=== PATIENT | male | born 1955 | race Caucasian/White ===

== ENCOUNTER 2024-04-09 08:38 | Inpatient (IN) | payer MEDICARE, OTHER, SELFPAY ==
[2024-04-04 13:48] VITALS: BMI 24.3
[2024-04-09] VITALS (14 sets, daily range): BP systolic 115–174; BP diastolic 67–94; PULSE 51–74; RESP 12–21; TEMP 36.6–37.1; O2SAT 94–99; BMI 24.3
--- NOTE | 2024-04-09 | DI.RAD.S_ITS ---
PROCEDURE: XR KNEE RT 1TO2V INDICATIONS: post op TECHNIQUE: 2 view(s) of the knee acquired. COMPARISON: None. FINDINGS: Bones: Patient is status post knee joint arthroplasty. Hardware components are in expected positions. Visualized bony structures are intact. Soft tissues: Overlying postoperative changes are noted. IMPRESSION: Expected post-operative appearance of a knee arthroplasty. Approved by: Ramon Guerrero M.D. on 04/09/2024 at 17:04
[2024-04-09] MEDS: VANCOMYCIN 1,000 MG/200 ML PIGGYBACK 200 MG IV (09:37)
[2024-04-09] MEDS: ACETAMINOPHEN 325 MG TABLET 975 MG PO (09:40)
[2024-04-09] MEDS: LACTATED RINGERS 1,000 ML 42 ML IV ×2 (09:40→12:08)
--- NOTE | 2024-04-09 10:06 | PM.PREOP ---
Pre-operative Note Interval Note History & Physical reviewed/Exam performed by Physician: Yes Changes to H&P: No
--- NOTE | 2024-04-09 10:06 | PM.OP.1 ---
Operative Date/Time/Diagnoses Date of procedure: 04/09/24 Time of procedure: 11:00 Pre-op diagnosis: History of right knee medial compartment arthroplasty with slight loosening and progressive severe patellofemoral and lateral compartment OA, Post-op diagnosis: same Procedure & Clinicians Procedure: Revision right total knee arthroplasty Same procedure as scheduled: Yes Indications: The patient has had progressively worsening right knee pain with a history of a right knee medial unicompartment arthroplasty. He has slight tibial loosening and severe Radiographic changes consistent with arthritis in the patellofemoral and lateral compartment. Non-operative management has failed and the patient has requested revision right total knee replacement. The risks, benefits and alternatives to surgery were discussed with the patient prior to proceeding. Risks discussed included, but were not limited to, failure to relieve pain, stiffness, infection, nerve damage, deep venous thrombosis, pulmonary embolism, stroke, coma, heart attack, permanent paralysis and , as well as the potential need for eventual revision of the prosthetic. Surgeon: Tanesha Jackson Sugar Cane Planter Machine Operator: Neri Li Anesthesia Type: General, Spinal and Peripheral nerve block Operative Notes Findings: Severe patellofemoral and lateral compartment OA with mild loosening of the medial unicompartment arthroplasty some evidence of poly wear, minimal posterior tibial loosening Closure Type: primary Specimen(s): other (Cultures femoral synovial and tibial and PCR) Prosthetic devices, grafts, tissues, transplants, or devices: Jackson and nephew journey BCS2 size 8 femur, size 7 tibia, 100 x 10 mm femoral stem, size 9 poly, 35 mm oval patella Estimated Blood Loss (mL): 250 Blood products transfused: none Tourniquet time (min): 107 Procedure in detail: The patient was seen in the pre-operative area, where the patient identified the right knee as the operative site and this was marked with my initials. The patient received pre-operative antibiotics, and was taken to the operating room and placed on the operative table in the supine position. After satisfactory anesthesia, a multimedia technician out was performed. The right leg was encircled with a tourniquet about the proximal thigh, and the leg was prepared from the toes to the tourniquet with ChloroPrep in the usual fashion and draped through sterile drapes. The leg was elevated and exsanguinated with Eschmark bandage and the tourniquet inflated to [250] mmHg pressure. A PA was used during the procedure and was essential for intraoperative retraction and safe implantation of the components. The knee was approached through an approximately 18 cm incision centered over the patella on the right knee using a combination of the patient's previous incision and extending it proximally and distally. It was carried into the knee through a medial parapatellar arthrotomy. A Portion of the medial scar around the medial unicompartment component and lateral meniscus was resected. Soft tissue was carefully mobilized around the patella the patella was measured with a caliper. Bone was resected from the patella and the patellar height was reconstituted with up an appropriate sized patellar component. A cover was then placed on the patella. A small amount of additional medial and lateral meniscus was resected. The unicompartment knee was partially loosened using a combination of osteotomes and a TPS saw. The tourniquet was elevated initially for 29 minutes and then we let it down. Pins were placed in the femur for Cori robotic navigation and in the tibia. The knee was meticulously mapped and a plan was taken and developed. Patient was placed through a range of motion we attempted to correct his angular deformity and leave him with a balanced knee. The components were then meticulously removed in order to minimize bone loss. Deep cultures were taken from the undersurface of the femoral component the tibia and synovium and were sent to pathology for PCR and cultures. The bur was used to resect the bone off of the lateral femur and bur holes were used for placement of the 5 in 1 block. It looked like an appropriate distal femoral cut and the cut was made without difficulty. I checked the medial femur there was minimal bone loss and it did not look like we needed an augment when checking with the Cori robotic assisted navigation. The rotation was assessed and the appropriate size femoral guide was placed on the distal femur and finishing cuts were made. There was no evidence of notching. The anterior, posterior and chamfer cuts were then made. The posterior osteophytes and soft tissues were then removed. The posterior capsule was injected with part of a mixture of 60 ml 0.25% Marcaine mixed with 266 mg Exparel for post operative pain control. The remainder of this mixture was injected into the capsule and subcutaneous tissues during cement curing. A clean-up cut was made on the tibia in order to resect portion of the lateral tibial plateau. I then used the Cori robotic bur all mode to remove any residual tibia. There was minimal bone loss in the medial tibia and it did not look like we needed an augment. The rotation was assessed. The patient was placed in extension residual medial and lateral meniscus as well as any residual bone was carefully resected. [No] additional tibia was resected. Hemostasis was achieved especially posteriorly. Additional local was injected into the posterior capsule. The extension gap was assessed. The femoral component was trial was placed and the notch was finished. Trial tibial and femoral components were then placed and the knee placed through a range of motion. Range of motion was [0-130], with good stability throughout the range. The tourniquet was reinflated for 78 minutes. The trials were then removed, and the tibia was finished. The tibia was carefully inspected. The cut appeared symmetrical without evidence of a substantial defect. I specifically rough in the medial aspect of the tibia scratching some fibrinous appearing area in the posterior aspect of the medial tibia I also removed a retained ACL screw. The punch was used also attempt freshened the bone medially in order to improve fixation. After the tibia had been drilled and then punched I also dropped down a Reamer to size 11 for a short stem. The bone was prepared with pulsatile lavage, and dried with a sponge. Cement was applied and the final prosthetics placed. Excess cement was removed during and after cement curing. A brief Betadine soak was performed. After confirming there was no extruded cement posteriorly, the final tibial insert was placed. The knee was copiously irrigated and the tourniquet deflated. Hemostasis was obtained with the [Aquamantys system]. The capsule was closed with interrupted # 1 Vicryl suture. The subcutaneous layer was closed with barbed sutures, and the skin with a running 3-0 V-Lock suture and skin marta. A marcial dressing was applied and the patient was taken to recovery having tolerated the procedure well. Complications: none Post-operative Condition: stable Disposition: Acute Care Plan for aftercare: The patient will be maintained on a standard total knee replacement protocol with weight bearing as tolerated. The patient will receive aspirin and sequential compression devices for DVT prophylaxis. The patient will be discharged home when safe for the home environment.
--- NOTE | 2024-04-09 11:00 | SUR.PREOP ---
Block start time 1042 with a time out. Monitoring initiated and maintained throughout procedure. Oxygen and medications given by anesthesia provider or by her instructions. Patient remained stable throughout procedure, no adverse reactions noted. Block end time 1053.
[2024-04-09] MEDS: CEFAZOLIN 2 GM/100 ML PREMIX 100 ML IV ×2 (11:12→18:20)
[2024-04-09] MEDS: TRANEXAMIC ACID 1,000 MG VIAL 2000 MG INJ ×2 (11:14→13:51)
--- NOTE | 2024-04-09 11:35 | SUR.OPER ---
Supine on padded OR bed. Pillow under head, arms secured on padded armboards <90 degree abduction. Safety belt across torso. Non-operative leg secured with tape over blanket over lower leg. Operative leg secured in DeMayo/Beny/Nathe positioner. Foam padded brace at thigh of operative leg.
[2024-04-09] MEDS: BUPIVACAINE 0.25% (PF) 30 ML, EPINEPHrine 0.15 MG INJ (11:42)
[2024-04-09] MEDS: BUPIVACAINE LIPOSOME 266 MG/20 ML VIAL INJ (11:43)
[2024-04-09] MEDS: MEPERIDINE 50 MG/ML INJ 12.5 MG IV (14:30)
[2024-04-09] MEDS: OXYCODONE IR 5 MG TABLET PO ×3 (14:49→18:20)
[2024-04-09] MEDS: hydrOXYzine 50 MG/ML INJ 25 MG IM (14:51)
--- NOTE | 2024-04-09 16:35 | PT.IIE ---
Current Diagnoses Unilateral primary osteoarthritis, right knee (04/09/24) Mechanical loosening of internal right knee prosthetic joint, initial encounter (04/09/24) Presence of right artificial knee joint (04/09/24) Surgery Performed Operation Date: 04/09/24 10:45 Actual Procedures p Total Knee Arthroplasty Revision - Robot uni to total(Right) - Tanesha Jackson MD Surgical History (Last Updated 04/04/24 @ 14:47 by Daisy Cody, RN) Anesthesia History of coronary angioplasty with insertion of stent (01/2020) History of partial knee replacement (~2011) History of radical prostatectomy (10/2005) Medical History (Last Updated 04/04/24 @ 14:47 by Daisy Cody, RN) Bladder stones Coronary artery disease Dupuytren's contracture of left hand Erectile dysfunction Generalized anxiety disorder History of deviated nasal septum History of elevated PSA (~2004) History of prostate cancer (~2004) Hyperkalemia Mixed hyperlipidemia Raynauds disease Right knee pain Urinary incontinence (~2005) Physical Therapy Inpatient Evaluation/Re-Eval M1 PT/OT-IP Prior Functional Status Start: 04/09/24 17:37 Freq: NEEDED Status: Active Protocol: Document 04/09/24 16:35 AB (Rec: 04/09/24 17:59 AB [id number]) Medical Review Prior Functional Status Medical History Reviewed Yes Communication able to make needs known Mobility and Gait pt stated that he was independent with all mobilities and ambulation without AD Social History Household Members spouse Living Arrangements House Number of Floors (Floors) One Floor Number of Stairs To Enter/Railing? 1 step to enter Home Environment Walk in Shower Home Equipment Front Wheel Walker,Straight Cane M2 PT-IP Current Condition Start: 04/09/24 17:37 Freq: NEEDED Status: Active Protocol: Document 04/09/24 16:35 AB (Rec: 04/09/24 17:59 AB [id number]) Physical Therapy Current Condition Current Condition Evaluation Date 04/09/24 Treatment Diagnosis s/p R TKA revision; difficulty in walking Onset Date 04/09/24 M3 PT-IP Subjective Start: 04/09/24 17:37 Freq: NEEDED Status: Active Protocol: Document 04/09/24 16:35 AB (Rec: 04/09/24 17:59 AB [id number]) Subjective Physical Therapy Visit Type Type Initial Evaluation Visit Start Time 16:35 Visit Stop Time 17:35 Number of GLOBAL COMPENSATION ANALYST Visits 0 Physical Therapy Visit Comments Patient Comments agreeable to do PT Therapy Pain Assessment Pain When Pain Assessed At Rest Pain Present Pain Present Pain Reported Location Right Knee Intensity 6 Scale Used Numeric (0 - 10) Pain Behaviors Guarding Pain Management Techniques Apply Cold,Distraction, Modification of Treatment,Re- positioning,Timing of Activity with Medications M4 PT-IP Mobility and Gait Start: 04/09/24 17:37 Freq: NEEDED Status: Active Protocol: Document 04/09/24 16:35 AB (Rec: 04/09/24 17:59 AB [id number]) PT-Bed Mobility Assessment Supine to Sit Supine to Sit Standby Assistance PT-Transfer Assessment Sit to and From Stand Sit to and from Stand Contact Guard Assistance,1 Person Assistance,Use of Upper Extremities Equipment Transfer Assistive Device Gait Belt,Front Wheeled Walker Orthotic/Prosthetic Devices or Brace: No Transfers Transfer Destination Chair Transfer Technique ambulated Transfer Ability Level of Assist Contact Guard Assistance,1 Person Assistance,Use of Upper Extremities Comments Mobility Comments pt supine in bed and agreeable to do PT. spouse in room with pt. obtained PLOF and home set up. spouse provided and clarified some info. pt groggy but able to respond to questions but needs repetitions. post-op folder provided and reviewed with pt. pt completed heel slides prior to mobility. BP checked: 151/68. pt completed supine to sit SBA. able to sit on EOB SBA. c/o slight lightheadedness. BP: 153/68. pt can be impulsive. completed sit to stand cGA and ambulated in room using FWW CGA ~ 20 ft. pt sat on the chair. caregiver training: educated spouse on how to use safety belt and how to assist pt. spouse was able to put safety belt on. assisted pt with sit to stand and ambulated towards platform step using FWW CGA ~ 40 ft. pt completed up/down step using FWW CGA and max cues. completed 2 sets. pt with difficulty following directions and can be impulsive. pt ambulated back to the room and sat on chair using fWW CGA. positioned pt on the chair. call light and table placed within reach. set up for dinner. pt and spouse without further concerns. Gait Assessment Gait Gait Assistance Required: Contact Guard Assist Distance (Feet) 40 Able to Maintain Weight Bearing Status Yes During Gait Assistive Devices Assistive Device Gait Belt,Front Wheeled Walker Orthotic/Prosthetic Devices or Brace: No Gait Deviations General Gait Pattern Within Normal Limits Factors Limiting Gait Function Factors Limiting Gait Function Abnormal Tonal Influences, Decreased Activity Tolerance, Decreased Strength,Limited Range of Motion,Pain,Poor Balance,Poor Safety Awareness Stair Climbing Assessment Evaluation Level of Assist On Stairs Contact Guard Assistance Devices Stair Climbing Assistive Devices Front Wheel Walker Technique/Endurance Stair Climbing Direction Ascend and Descend Stair Climbing Technique Step to Step Number of Steps Climbed 1 Query Text: Stair Climbing Set # Repetitions (reps) 2 PT-Balance Assessment Sitting Balance and Reactions Static Sitting Balance Ability Normal Dynamic Sitting Balance Ability Good Standing Balance and Reactions Static Standing Balance Ability Good Dynamic Standing Balance Ability Fair Device Used FWW M5 PT-IP Objective Assessments Start: 04/09/24 17:37 Freq: NEEDED Status: Active Protocol: Document 04/09/24 16:35 AB (Rec: 04/09/24 17:59 [id number]) Orientation Orientation/Cognition Level of Alertness Alert Orientation Name,Place,Situation Language Function Ability Hard of Hearing Safety Awareness Decreased Safety Awareness Memory Description Short Term Impaired Gross Range of Motion Lower Extremity ROM Impairments R knee flexion: ~ 90 deg R knee extension: ~ 20 deg less to 0 Strength Lower Extremity Strength Assessment Within Functional Limits Coordination Assessment Gross Coordination Gross Coordination WNL Sensation Assessment Sensation Gross Sensation WNL Muscle Tone Muscle Tone WNL Yes M6 PT-IP Treatment Start: 04/09/24 17:37 Freq: NEEDED Status: Active Protocol: Document 04/09/24 16:35 AB (Rec: 04/09/24 17:59 AB [id number]) Physical Therapy Treatment Exercises Exercises Heel Slides Education Education Provided Precautions,Weight Bearing Status,Post-Op Packet,Safety M7 PT-IP Assessment and Plan Start: 04/09/24 17:37 Freq: NEEDED Status: Active Protocol: Document 04/09/24 16:35 AB (Rec: 04/09/24 17:59 AB [id number]) PT Summary Assessment and Plan Potential Rehabilitation Potential Fair Status of Condition at Evaluation Evolving Summary Impairments Pain,ROM,Strength,Balance, Coordination,Sensation,Tone, Cognition,Bed Mobility, Transfers,Gait,Activity Tolerance Assessment Summary pt is a 68 y/o M s/p R TKA revision POD 0 and is WBAT. pt requiring CGA with mobility using FWW but presents with grogginess with difficulty following directions affecting safety. caregiver training conducted and spouse was able to assist pt safely. spouse also expresses concerns of pt' s safety due to decrease level of alertness and decrease ability to follow directions. pt plans to go home and spouse to assist. pt has out pt PT set up. pt may go home when medically stable. Goals Bed Mobility Goal Independent Transfer Goal Independent,Front Wheeled Walker Gait Goal Independent,Front Wheel Walker Gait Distance 200 Other Goals up/down 1 step using FWW mod I Days to Meet Goals 5 Frequency of Treatment Frequency Of Treatment Twice a Day Treatment Plan Physical Therapy Treatment Plan Bed Mobility Training,Transfer Training,Gait Training, Therapeutic Exercise,Balance Retraining,Post Op Education, Discharge Planning,Hot or Cold Pack,Neuromuscular Re-ed, Coordination Retraining,Manual Therapy Weight Bearing Status Weight Bearing Status Weight Bear as Tolerated Allowed Weight Bearing Amount (enter % RLE WBAT or #) (%) Recommendations To Nursing Amount of Assist Needed 1 Person Assist Discharge Recommendations PT Discharge Recommendations Home with Assistance, Outpatient PT Transportation Needs at Discharge Private Vehicle
[2024-04-09] MEDS: METOPROLOL ER 25 MG TABLET PO (16:37)
[2024-04-09] MEDS: LACTATED RINGERS 1,000 ML 100 ML IV (19:30)
[2024-04-09] MEDS: ASPIRIN EC 81 MG TABLET PO (20:30)
[2024-04-09] MEDS: ATORVASTATIN 20 MG TABLET PO (20:30)
[2024-04-09] MEDS: ACETAMINOPHEN 325 MG TABLET 650 MG PO (20:30)
[2024-04-09] MEDS: DOCUSATE 100 MG CAPSULE PO (20:30)
[2024-04-10] MEDS: ACETAMINOPHEN 325 MG TABLET 650 MG PO ×2 (02:29→08:21)
[2024-04-10] MEDS: CEFAZOLIN 2 GM/100 ML PREMIX 100 ML IV (03:55)
[2024-04-10 05:26] LABS: Hemoglobin 13.1 g/dL (13.5-17.5)
[2024-04-10 08:00] VITALS: BP 125/79; PULSE 63; RESP 18; TEMP 37.2; O2SAT 96
[2024-04-10] MEDS: ASPIRIN EC 81 MG TABLET PO (08:20)
[2024-04-10] MEDS: MULTIVITAMIN 1 TABLET 1 TAB PO (08:20)
[2024-04-10] MEDS: ASCORBIC ACID 500 MG TABLET 1000 MG PO (08:25)
--- NOTE | 2024-04-10 09:01 | PM.DS.1 ---
History of Present Illness History of Present Illness Chief complaint: INPT Narrative: Ander is a pleasant 68 year old male who is POD#1 s/p revision right total knee arthroplasty by Dr. Jackson. This morning patient states he is doing well, pain is 4-10. Pain controlled with oral oxycodone alone. He worked with PT yesterday and was able to do stairs without issue. He has his post-op pain medication at home already, he has walker, ice machine at home as well. Post-op PT scheduled w/ SNO, Zane Loera. Lives at home with who is willing and able to aid in his postop recovery. Has been urinating on his own, he does have chronic urinary incontience issues. Denies fever, chills, chest pain, SOB, nausea, vomiting. VSS. Operative Date/Time/Diagnoses Date of procedure: 04/09/24 Time of procedure: 11:00 Pre-op diagnosis: History of right knee medial compartment arthroplasty with slight loosening and progressive severe patellofemoral and lateral compartment OA, Post-op diagnosis: same Procedure & Clinicians Procedure: Revision right total knee arthroplasty Same procedure as scheduled: Yes Indications: The patient has had progressively worsening right knee pain with a history of a right knee medial unicompartment arthroplasty. He has slight tibial loosening and severe Radiographic changes consistent with arthritis in the patellofemoral and lateral compartment. Non-operative management has failed and the patient has requested revision right total knee replacement. The risks, benefits and alternatives to surgery were discussed with the patient prior to proceeding. Risks discussed included, but were not limited to, failure to relieve pain, stiffness, infection, nerve damage, deep venous thrombosis, pulmonary embolism, stroke, coma, heart attack, permanent paralysis and , as well as the potential need for eventual revision of the prosthetic. Surgeon: Tanesha Jackson Hoop Punch And Coiler Operator: Neri Li Anesthesia Type: General, Spinal and Peripheral nerve block. Discharge Providers Provider Date of admission: 04/09/24 08:38 Discharge Date: 04/10/24 Primary care physician: Yfn Doshi MD Consults: 04/09/24 15:34 Consult to Discharge Planning Routine Comment: Consult to Occupational Therapy Evaluate & Treat Comment: Physician Instructions: Evaluate and treat Consult to Physical Therapy Evaluate & Treat Comment: Physician Instructions: postop TKA protocol Discharge provider: Lorena De La Cruz, PA-C Summary Hospital Course Discharge Diagnosis: stable s/p revision right total knee arthroplasty Hospital Course: Uncomplicated hospital course. Exam Vital Signs (past 8 hours): - 04/10/24 08:00 Temperature 99 F Pulse Rate 63 Respiratory Rate 18 Blood Pressure 125/79 Pulse Oximetry 96 Oxygen Flow Rate 0 Oxygen Delivery Method Room Air Oxygen Flow Rate 0 Narrative Exam Narrative: Patient lying comfortably in bed during our interview today. No acute distress. AOx3. at bedside. Grossly normal alignment of the RLE. 5/5 strength with DF, PF, EHL bilaterally. Gross sensation intact throughout bilateral lower extremities. Calves soft and non-tender bilaterally. SCDs are on and functioning. Brisk capillary refill. Post-surgical HARPREET dressing clean, dry, intact and functioning over the right knee without drainage. Objective Labs 04/10/24 04:35 Labs: Laboratory Results - last 24 hr 04/10/24 04:35 Hgb 13.1 L Hct 39.0 L PFSH Medical History (Updated 04/04/24 @ 14:47 by Daisy Cody RN) History of deviated nasal septum Right knee pain Hyperkalemia History of elevated PSA (~2004) Dupuytren's contracture of left hand Bladder stones Raynauds disease Generalized anxiety disorder Erectile dysfunction Urinary incontinence (~2005) History of prostate cancer (~2004) Mixed hyperlipidemia Coronary artery disease Surgical History (Updated 04/04/24 @ 14:47 by Daisy Cody RN) History of coronary angioplasty with insertion of stent (01/2020) Anesthesia History of radical prostatectomy (10/2005) History of partial knee replacement (~2011) Family History Father History of heart disease Mother Hyperlipidemia Grandfather Cancer Grandfather History of heart disease Grandmother Dementia Social History household members: spouse Smoking Status: Never smoker alcohol intake: current Discharge Assessment & Plan Assessment and Plan Assessment: stable s/p revision right total knee arthroplasty Plan of Treatment: 1) Plan to discharge to home today with pending final PT evaluation. 2) Continue multimodal pain management with ice to the knee for additional pain control. 3) ASA b.i.d. for DVT prophylaxis. 4) Start outpatient physical therapy to work on range of motion and mobility 5) Keep dressing intact, clean, dry until 2 week postop appointment. No soaking the incision site in pools or tubs. No topical ointments or creams to the incision site. 6) Follow up at [facility] in 2 weeks for a postop appointment and wound check. All patient's questions were answered, they demonstrates understanding and are in agreement with the plan. Call our office if any questions or concerns arise. Discharge Plan Discharge Plan Patient Disposition: Home Discharge orders & Medications Prescriptions: New docusate sodium 100 mg Capsule 100 mg PO BID Qty: 30 0RF ondansetron 4 mg Tablet,Disintegrating 4 mg PO Q4HR PRN (Reason: Nausea And Vomiting) Qty: 10 0RF oxycodone 5 mg Tablet 5 mg PO Q4-6H PRN (Reason: Pain, Moderate (4-6)) Qty: 30 0RF Continued zinc gluconate 50 mg tablet 50 mg PO DAILY metoprolol succinate 25 mg tablet extended release 24 hr 25 mg PO QPM garlic extract 600 mg tablet 600 mg PO DAILY ascorbic acid (vitamin C) [Vitamin C With Viktoria Hips] 1,000 mg tablet 1 g PO DAILY multivitamin [Daily Multi-Vitamin] Tablet 1 tab PO DAILY Repatha SureClick 140 mg/mL pen injector 140 mg SUBCUT Q2W rosuvastatin 10 mg tablet 10 mg PO ONCE PM sildenafil 50 mg tablet 50 mg PO DAILY PRN (Reason: Sexual Activity) acetaminophen [Tylenol Extra Strength] 500 mg Tablet 1,000 mg PO Q8H PRN (Reason: Pain, Moderate) Changed aspirin 81 mg capsule 81 mg PO BID 42 Days Qty: 84 0RF Follow up/Referrals: Yfn Doshi MD [Primary Care Provider] - Tanesha Jackson MD [Physician] - (Follow up as scheduled at [facility] in 2 weeks.) Diet/Activity/Treatments Diet: Diet as Tolerated Activity: Weight-bearing as tolerated. Work w/ PT to improve ROM and strength. Cold/Heat Therapy: Ice to the knee for additional pain control Skin/Wound/Dressing Care Report to your healthcare provider any signs of infection, such as:: chills, fever, night sweats, unusual drainage and unusual redness Dressing: Keep dressing intact, clean and dry until 2 week post-op appointment. No soaking the incision site in pools or tubs. No topical ointments or creams to the incision site. Once the battery dies on the HARPREET dressing (about one week) you may cut the tubing off but leave the dressing in place. Visit Report/Discharge Packet Instructions: DI for Knee Replacement, DI for Prescription Opioid Use Stand Alone Forms: Patient Portal/API, Stroke Signs & Symptoms Discharge Data Primary Care Provider: Yfn Doshi VTE Deep Vein Thrombosis/Pulmonary Embolism Present on Admission: No
[2024-04-10] MEDS: OXYCODONE IR 5 MG TABLET PO (09:18)
[2024-04-10 09:21] VITALS: O2SAT 97
--- NOTE | 2024-04-10 10:06 | PT.IPTN ---
Current Diagnoses Unilateral primary osteoarthritis, right knee (04/09/24) Mechanical loosening of internal right knee prosthetic joint, initial encounter (04/09/24) Presence of right artificial knee joint (04/09/24) Surgery Performed Operation Date: 04/09/24 10:45 Actual Procedures p Total Knee Arthroplasty Revision - Robot uni to total(Right) - Tanesha Jackson MD Physical Therapy Treatment Note M2 PT-IP Current Condition Start: 04/09/24 17:37 Freq: NEEDED Status: Active Protocol: Document 04/09/24 16:35 AB (Rec: 04/09/24 17:59 AB [id number]) Physical Therapy Current Condition Current Condition Evaluation Date 04/09/24 Treatment Diagnosis s/p R TKA revision; difficulty in walking Onset Date 04/09/24 M3 PT-IP Subjective Start: 04/09/24 17:37 Freq: NEEDED Status: Active Protocol: Document 04/10/24 10:32 TS (Rec: 04/10/24 10:39 TS [id number]) Subjective Physical Therapy Visit Type Type Treatment Note Visit Start Time 10:06 Visit Stop Time 10:30 Notes spouse present Number of SYSTEMS DEVELOPER Visits 1 Physical Therapy Visit Comments Patient Comments Pt is agreeable to PT. Therapy Pain Assessment Pain When Pain Assessed At Rest Pain Present Pain Present Pain Reported Location Right Knee Intensity 6 Scale Used Numeric (0 - 10) Description Aching,Tender,With Movement Pain Management Techniques Apply Cold,Distraction, Modification of Treatment,Re- positioning,Timing of Activity with Medications M4 PT-IP Mobility and Gait Start: 04/09/24 17:37 Freq: NEEDED Status: Active Protocol: Document 04/10/24 10:32 TS (Rec: 04/10/24 10:39 TS [id number]) PT-Bed Mobility Assessment Supine to Sit Supine to Sit Standby Assistance Scooting Scooting to Edge of Bed Standby Assistance PT-Transfer Assessment Sit to and From Stand Sit to and from Stand Standby Assistance Equipment Transfer Assistive Device Gait Belt,Front Wheeled Walker Orthotic/Prosthetic Devices or Brace: No Comments Mobility Comments Supine to sit SBA with BUE support. Pt is impulsive to stand and requires cues for staying seated on EOB. STS with FWW SBA. Pt ambualtes in the room ~60'SBA with franklyn to gait. Pt sat in chair, education provided for ther-ex and intensity and frequency. Pt was left in the chair, all needs met. Gait Assessment Gait Gait Assistance Required: Contact Guard Assist Distance (Feet) 60 Able to Maintain Weight Bearing Status Yes During Gait Assistive Devices Assistive Device Gait Belt,Front Wheeled Walker Orthotic/Prosthetic Devices or Brace: No Factors Limiting Gait Function Factors Limiting Gait Function Abnormal Tonal Influences, Decreased Activity Tolerance, Decreased Strength,Limited Range of Motion,Pain,Poor Balance,Poor Safety Awareness PT-Balance Assessment Sitting Balance and Reactions Static Sitting Balance Ability Normal Dynamic Sitting Balance Ability Good Standing Balance and Reactions Static Standing Balance Ability Good Dynamic Standing Balance Ability Fair Device Used FWW M5 PT-IP Objective Assessments Start: 04/09/24 17:37 Freq: NEEDED Status: Active Protocol: Document 04/09/24 16:35 AB (Rec: 04/09/24 17:59 AB [id number]) Orientation Orientation/Cognition Level of Alertness Alert Orientation Name,Place,Situation Language Function Ability Hard of Hearing Safety Awareness Decreased Safety Awareness Memory Description Short Term Impaired Gross Range of Motion Lower Extremity ROM Impairments R knee flexion: ~ 90 deg R knee extension: ~ 20 deg less to 0 Strength Lower Extremity Strength Assessment Within Functional Limits Coordination Assessment Gross Coordination Gross Coordination WNL Sensation Assessment Sensation Gross Sensation WNL Muscle Tone Muscle Tone WNL Yes M6 PT-IP Treatment Start: 04/09/24 17:37 Freq: NEEDED Status: Active Protocol: Document 04/10/24 10:32 TS (Rec: 04/10/24 10:39 TS [id number]) Physical Therapy Treatment Education Education Provided Precautions,Weight Bearing Status,Post-Op Packet,Safety M7 PT-IP Assessment and Plan Start: 04/09/24 17:37 Freq: NEEDED Status: Active Protocol: Document 04/10/24 10:32 TS (Rec: 04/10/24 10:39 [id number]) PT Summary Assessment and Plan Potential Rehabilitation Potential Good Summary Impairments Pain,ROM,Strength,Balance, Coordination,Sensation,Tone, Cognition,Bed Mobility, Transfers,Gait,Activity Tolerance Progress Towards Goals Progressing Toward Goals Assessment Summary Clay is making progress with his mobility. He continues to ambulate in the room with FWW. He si SBA for bed mobility and STS. Hs is impulsive and lacks good safety awareness. PT is recommending pt return home with assist. Goals Bed Mobility Goal Independent Transfer Goal Independent,Front Wheeled Walker Gait Goal Independent,Front Wheel Walker Gait Distance 200 Other Goals up/down 1 step using FWW mod I Days to Meet Goals 5 Frequency of Treatment Frequency Of Treatment Twice a Day Treatment Plan Physical Therapy Treatment Plan Bed Mobility Training,Transfer Training,Gait Training, Therapeutic Exercise,Balance Retraining,Post Op Education, Discharge Planning,Hot or Cold Pack,Neuromuscular Re-ed, Coordination Retraining,Manual Therapy Weight Bearing Status Weight Bearing Status Weight Bear as Tolerated Allowed Weight Bearing Amount (enter % RLE WBAT or #) (%) Recommendations To Nursing Amount of Assist Needed 1 Person Assist Discharge Recommendations PT Discharge Recommendations Home with Assistance, Outpatient PT Transportation Needs at Discharge Private Vehicle
--- NOTE | 2024-04-10 10:49 | OT.IP.EVAL ---
Current Diagnoses Unilateral primary osteoarthritis, right knee (04/09/24) Mechanical loosening of internal right knee prosthetic joint, initial encounter (04/09/24) Presence of right artificial knee joint (04/09/24) Surgery Performed Operation Date: 04/09/24 10:45 Actual Procedures p Total Knee Arthroplasty Revision - Robot uni to total(Right) - Tanesha Jackson MD Past Medical History (Last Updated 04/04/24 @ 14:47 by Daisy Cody, RN) Bladder stones Coronary artery disease Dupuytren's contracture of left hand Erectile dysfunction Generalized anxiety disorder History of deviated nasal septum History of elevated PSA (~2004) History of prostate cancer (~2004) Hyperkalemia Mixed hyperlipidemia Raynauds disease Right knee pain Urinary incontinence (~2005) Surgical History (Last Updated 04/04/24 @ 14:47 by Daisy Cody, RN) Anesthesia History of coronary angioplasty with insertion of stent (01/2020) History of partial knee replacement (~2011) History of radical prostatectomy (10/2005) Occupational Therapy Inpatient Evaluation/Re-Eval M1 PT/OT-IP Prior Functional Status Start: 04/09/24 17:37 Freq: NEEDED Status: Active Protocol: Document 04/10/24 10:49 [facility] (Rec: 04/10/24 10:58 [facility] [id number]) Medical Review Prior Functional Status Medical History Reviewed Yes Communication able to make needs known Mobility and Gait pt stated that he was independent with all mobilities and ambulation without AD Activities of Daily Living and IADL's Independent with needs. Social History Household Members spouse Living Arrangements House Number of Floors (Floors) One Floor Number of Stairs To Enter/Railing? 1 step to enter Home Environment Standard Height Toilet,Walk in Shower Home Equipment Front Wheel Walker,Straight Cane M2 OT-IP Current Condition Start: 04/10/24 10:49 Freq: Status: Active Protocol: Document 04/10/24 10:49 [facility] (Rec: 04/10/24 10:58 [facility] [id number]) Occupational Therapy Current Condition Current Condition Evaluation Date 04/10/24 Treatment Diagnosis S/P R TKA Diagnosis Onset Date 04/09/24 M3 OT- IP Subjective and Pain Start: 04/10/24 10:49 Freq: Status: Active Protocol: Document 04/10/24 10:49 [facility] (Rec: 04/10/24 10:58 [facility] [id number]) OT- Subjective Occupational Therapy Visit Type Type Initial Evaluation Visit Start Time 10:30 Visit Stop Time 10:48 Occupational Therapy Visit Comments Patient Comments Pt agreed to get dressed. Patient/Caregiver Goals To go home. OT Pain Assessment Pain When Pain Assessed During Mobility Pain Present Pain Present Pain Reported Location Right Knee Pain Behaviors Facial Grimacing,Holding Area M4 OT- IP ADL's Start: 04/10/24 10:49 Freq: Status: Active Protocol: Document 04/10/24 10:49 [facility] (Rec: 04/10/24 10:58 [facility] [id number]) OT GNU-Asdo-Uknzxta General Evaluation Self-Feeding Ability Independent OT ADL-Grooming Comments OT Grooming Comments Not performed. OT ADL-Oral Care Comments Oral Care Comments Not performed. OT ADL-Dressing General Eval Upper Body Dressing Ability Minimal Assistance Lower Body Dressing Ability Maximum Assistance Comments OT Dressing Comments Able to show pt LB dresing equipment. insists to assist pt. Educated to dress the RLE first and take out last and be mindful not to twist his knee for ADL needs. OT ADL-Toileting Comments OT Toileting Comments Suggested use of urinal or to get up and assist at night. OT ADL-Bathing Comments OT Bathing Comments Pt's states to get a shower chair. In addition installing a HHSP would be useful. Educated to cover the dressing during showering needs. M5 OT- IP IADL's Start: 04/10/24 10:49 Freq: Status: Active Protocol: Document 04/10/24 10:49 [facility] (Rec: 04/10/24 10:58 [facility] [id number]) OT-Instrumental Activities of Daily Living Home Safety Awareness Awareness of Need for Assistance at Home Good Awareness Ability to Problem Solve Emergency Able to Problem Solve Situations Home Safety Comments Pt a little impulsive and groggy and that his to assist. Meal Preparation Meal Preparation Caregiver Provides Assist Color Specialist Color Specialist Caregiver Provides Assist M6 OT- IP Functional Cognition Start: 04/10/24 10:49 Freq: Status: Active Protocol: Document 04/10/24 10:49 [facility] (Rec: 04/10/24 10:58 [facility] [id number]) Cognitive Factors Limiting Selfcare Function Cognitive Ability Level of Alertness Alert Patient Orientation Name,Age,Birthday,Month,Date, Year,Day of Week,Place, Situation Attention Span Ability Capable of Focused Attention, Capable of Sustained Attention Ability to Follow Commands Able to Follow One Step Commands Cognitive Comments Cognitive Assessment Comments Pt a little groggy and has decreased safety awareness and needing cues to slow down. Pt 's has good understanding how to assist pt for all mobility and ADL needs. OT- Vision and Hearing OT- Hearing Assessment OT- Hearing Assessment WFL OT- Vision Assessment Visual Acuity Glasses All The Time Visual Attentiveness WFL Occular Pursuits WFL M7 OT- IP Mobility and Balance Start: 04/10/24 10:49 Freq: Status: Active Protocol: Document 04/10/24 10:49 [facility] (Rec: 04/10/24 10:58 [facility] [id number]) OT-Transfer Assessment Sit to and From Stand Sit to and from Stand Standby Assistance Transfers Transfer Ability Standby Assistance Technique Transfer Destination Bed,Chair Transfer Technique Stand Step Pivot Devices Transfer Assistive Devices Gait Belt,Front Wheeled Walker Comments Mobility Comments SBA for transfers in the room with FWW. OT- Balance Assessment Sitting Balance and Reactions Static Sitting Balance Ability Normal Dynamic Sitting Balance Ability Good Standing Balance and Reactions Static Standing Balance Ability Good Dynamic Standing Balance Ability Fair M8 OT- IP Objective Assessments Start: 04/10/24 10:49 Freq: Status: Active Protocol: Document 04/10/24 10:49 [facility] (Rec: 04/10/24 10:58 [facility] [id number]) OT Gross Range of Motion Upper Extremity Range of Motion Assessment Within Functional Limits OT Strength Upper Extremity Strength Assessment Within Functional Limits M9 OT- IP Assessment and Plan Start: 04/10/24 10:49 Freq: Status: Active Protocol: Document 04/10/24 10:49 [facility] (Rec: 04/10/24 10:58 [facility] [id number]) OT Summary Assessment and Plan Potential Rehabilitation Potential Excellent Analytic Complexity at Evaluation Low Summary OT Impairments Pain,Strength,Balance, Functional Mobility,Dressing, Toileting,Bathing,Shower Transfers Progress Towards Goals Progressing Toward Goals Assessment Summary Pt low complexity and main barriers are pain, decreased safety awareness and step at home. Able to do caregiver training with pt's for ADL and mobility needs. Pt will benefit from getting a shower chair and HHSP. Pt not wanting to get any LB dressing equipment as insists his to assist. Pt to go home with 26/12 assist and outpt PT. Frequency of Treatment Frequency Of Treatment Discharge Discharge Recommendations OT Discharge Recommendations Home with Assistance, Outpatient PT Home Equipment Needs shower chair, hand held shower spray , LB dressing equipment Transportation Needs at Discharge Private Vehicle
--- NOTE | 2024-04-10 11:57 | PC.NURSE ---
Pt is dressed and ready for discharge home with Spouse. IV has been removed. Went over d/c instructions with Pt and Spouse-discussed d/c meds, time of last dose, reviewed stroke education, icing and elevating his knee, HARPREET dsg, s/s of infection and when to call MD. Reminded Pt that he is not to drive while taking narcotics and cleared by his Orthopedic MD, and to drink plenty of fluids to prevent constipation or dehydration. Follow up appointment has already been made. Pt and Spouse denied further questions and Pt was taken out via w/c by [employer] to POV with Spouse and all belongings.
== END 2024-04-10 12:01 | disposition home or self-care (01) | DRG 467 ==
PROVIDERS: Admitting Provider Orthopaedic Surgery; PCP Internal Medicine; Referring Provider Orthopaedic Surgery; Visit Provider Orthopaedic Surgery
PROC: 0SRC0J9 Replacement of Right Knee Joint with Synthetic Substitute, Cemented, Open Approach (ICD-10-PCS; principal; 2024-04-09 10:45)
DX: M17.11 Unilateral primary osteoarthritis, right knee (principal); T84.032A Mechanical loosening of internal right knee prosthetic joint, initial encounter; T84.062A Wear of articular bearing surface of internal prosthetic right knee joint, initial encounter; E78.2 Mixed hyperlipidemia; N52.9 Male erectile dysfunction, unspecified; I10 Essential (primary) hypertension; I25.10 Atherosclerotic heart disease of native coronary artery without angina pectoris
CPT/HCPCS: 36415; 64450; 73560; 85014; 85018; 87070; 87075; 87205; 87801; 97116; 97162; 97165; 97530; C1776; C9290; J0171; J0690; J1100; J1171; J2175; J2405; J3010; J3410

== ENCOUNTER → 2024-06-21 10:58 | Outpatient (CLI) | payer MEDICARE, OTHER, SELFPAY ==
[2024-04-09 16:45] VITALS: BMI 24.3
[2024-06-21 12:12] LABS: Hematocrit 45.5 % (41-53); Hemoglobin 15.2 g/dL (13.5-17.5); Mean Corpuscular HGB Conc 33.3 % (30-36); Mean Corpuscular Hemoglobin 29.7 PG (26-34); Platelet Count 232 X10^3/uL (150-400); Red Blood Cell Count 5.11 X10^6/uL (4.5-5.9); Red Cell Distribution Width 14.1 % (11.6-14.8); White Blood Cell Count 5.6 X10^3/uL (4.5-11.0)
[2024-06-21 12:29] LABS: Alanine Aminotransferase 28 IU/L (<50); Albumin 4.9 g/dL (3.5-5.0); Albumin Globulin Ratio 2.2 (1.0-2.8); Alkaline Phosphatase 63 U/L (38-126); Aspartate Aminotransferase 32 IU/L (17-59); Bilirubin Total 0.5 mg/dL (0.2-1.3); Blood Urea Nitrogen 33 mg/dL (9-20); Calcium 10.1 mg/dL (8.4-10.2); Carbon Dioxide 30 mmol/L (22-32); Chloride 102 mmol/L (98-107); Cholesterol 153 mg/dL (140-199); Estimated Glomerular Filt Rate > 60 mL/min (>60); Globulin 2.2 g/dL (1.7-4.1); Glucose 92 mg/dL (80-110); HDL Cholesterol 57 mg/dL (40-60); HEMOLYSIS < 15 (0-50); LDL Cholesterol Calculated 85 mg/dL (<100); Sodium 140 mmol/L (137-145); Total Protein 7.1 g/dL (6.3-8.2); Triglycerides 53 mg/dL (35-150)
[2024-06-21 12:30] LABS: Potassium 5.4 mmol/L (3.4-5.1)
[2024-06-21 13:00] LABS: Prostate Specific Antigen < 0.064 ng/mL (0.10-4.00)
[2024-06-21 13:03] LABS: TSH w/ Reflex to FT4 1.53 uIU/mL (0.47-4.68)
[2024-06-21 13:18] LABS: Vitamin B12 Reflex MMA if <400 760 pg/mL (239-931)
== END ==
PROVIDERS: PCP Internal Medicine; Referring Provider Internal Medicine; Visit Provider Internal Medicine
DX: E53.8 Deficiency of other specified B group vitamins (principal); I25.10 Atherosclerotic heart disease of native coronary artery without angina pectoris; Z85.46 Personal history of malignant neoplasm of prostate; R94.6 Abnormal results of thyroid function studies; E78.2 Mixed hyperlipidemia
CPT/HCPCS: 36415; 80053; 80061; 82607; 84153; 84443; 85027

== ENCOUNTER → 2024-11-15 07:15 | Outpatient (CLI) | payer MEDICARE, OTHER, SELFPAY ==
[2024-04-09 16:45] VITALS: BMI 24.3
--- NOTE | 2024-11-15 07:16 | DI.CT.S_ITS ---
PROCEDURE: CT HEAD/BRAIN WO CON INDICATIONS: CVA/cognitive impairment TECHNIQUE: Noncontrast 4.5 mm thick angled axial sections acquired from the foramen magnum to the vertex, with coronal and sagittal reformats. For radiation dose reduction, the following was used: automated exposure control, adjustment of mA and/or kV according to patient size. COMPARISON: None. FINDINGS: Image quality: Diagnostic. Some images are limited by beam hardening artifacts. Ventricles and cortical sulci are mildly dilated commonly represents a pattern of atrophy. No CT evidence of intracranial hemorrhage, mass lesion, mass effect, acute or subacute infarct. The orbits, scalp, calvarium, paranasal sinuses, mastoid air cells, middle ear cavities within normal limits. IMPRESSION: Mild atrophy. No CT evidence of intracranial hemorrhage. If symptoms persist or worsen, or there is high clinical suspicion of intracranial abnormality, MRI could be performed. Dictated by: Yandel Flanagan M.D. on 11/15/2024 at 13:11 Approved by: Yandel Flanagan M.D. on 11/15/2024 at 13:14
== END ==
LOC: CT 07:16
PROVIDERS: PCP Internal Medicine; Referring Provider Internal Medicine; Visit Provider Internal Medicine
DX: R41.89 Other symptoms and signs involving cognitive functions and awareness (principal)
CPT/HCPCS: 70450

== ENCOUNTER 2025-05-13 10:47 | Day surgery (SDC) | payer MEDICARE, OTHER, SELFPAY ==
[2024-04-09 16:45] VITALS: BMI 24.3
[2025-05-06 14:28] VITALS: BMI 24.3
--- NOTE | 2025-05-12 11:24 | EKG_ITS ---
[address] [address] Test Date: 2025-05-13 Pat Name: Ander Martinez Department: Room: Gender: Male Facility Assistant: Remberto FONTANA : 1955 Requested By: Order Number: [id number] Reading MD: Conor Barreto MD Measurements Intervals [place] Rate: 55 P: 66 LA: 166 QRS: -39 QRSD: 68 T: -17 QT: 434 QTc: 415 Interpretive Statements Sinus bradycardia Left axis deviation Inferior infarct , age undetermined Electronically Signed On 05-14-2025 7:16:06 PST by Conor Barreto MD
--- NOTE | 2025-05-13 | PATH_ITS ---
[facility] Accession Number: [id number] No. of containers..01 Tissue . 01 Material submitted: . body - COLITIS BX @ 50CM . 01 Diagnosis: COLON AT 50 CM, BIOPSY: Colonic mucosa with ulcer; please see comment. Negative for granulomas, dysplasia or malignancy. MRV 05/15/20251934 Local . 01 Comment: The histologic findings raise a differential diagnosis including infection, drug/toxin-induced injury, mucosal ischemia, and in the appropriate clinical setting, idiopathic inflammatory bowel disease. . 01 Electronically signed: . Karel Girard MD, PhD, Pathologist NPI- [id number] . 01 Gross description: . Received in formalin with two patient identifiers and colitis biopsy at 50 cm, are four 0.2 to 0.3 cm [place] tissue fragments. Entirely submitted in cassette A1. ([id number]) /MINERVA 05/14/20251936 Local . 01 Pathologist provided ICD-10: K63.3 . 01 CPT . 363006 Specimen Comment: A courtesy copy of this report has been sent to [phone] Performed at: [address] [facility] [id number] MD Ander Elizabeth MD Phone: [phone]
--- NOTE | 2025-05-13 07:09 | PM.PREOP ---
Pre-operative Note Interval Note History & Physical reviewed/Exam performed by Physician: Yes Changes to H&P: No ASA Class (for procedural sedation): II
[2025-05-13 11:18] VITALS: BP 133/83; PULSE 55; RESP 16; TEMP 36.4; O2SAT 99
--- NOTE | 2025-05-13 11:22 | P.OP.COLON_ITS ---
Operative Date/Time/Diagnoses Date of procedure: 05/13/25 Time of procedure: 11:43 Pre-op diagnosis: Screening colonoscopy Post-op diagnosis: other (Ulcerative colitis) Procedure & Clinicians Study performed: Screening colonoscopy with biopsy Same procedure(s) as scheduled: Yes Indications: 69yo M, screening colonoscopy Surgeon: Mikey Randall Anesthesia Type: MAC +/- Procedure Notes SCOAP/Timeout: Performed Procedure in detail: Colonoscopy Patient placed in left lateral recumbent position. Time out was performed. Procedural sedation was administered by anesthesia. Examination began with a thorough inspection of the perianal area. There was no evidence of fissures, fistulae, external hemorrhoids or cutaneous malignancy. The colonoscope was then placed into the rectum and the lumen was insufflated with carbon dioxide. The scope was carefully advanced forward. Ultimately the cecum was intubated and confirmed by identification of the ileocecal valve, the appendiceal orifice and the confluence of the taenia. The scope was then slowly withdrawn examining the colon thoroughly in all directions. In the rectum, retroflexion of the scope was performed for inspection of the distal rectum and anal canal. ?Significant colonoscopy findings: ?1. Quality of the preparation-good, [place] 2-3, improved with irri gation/suction ?2. Ulcerative colitis throughout sigmoid colon, biopsies taken, colitis mucosa throughout sigmoid colon with ulcerations at 50cm 3. No polyps, mass, stricture Scope withdrawal time: 10 minutes Findings: colitis Specimen(s): other (biopsies) Estimated Blood Loss: 5 Complications: none Impression: Ulcerative colitis, biopsies pending Post-procedure Recommendations: Will call with biopsy results Plan for aftercare: PACU then home Follow up: as needed Disposition: PACU
[2025-05-13 11:32] LABS: Blood Urea Nitrogen 18 mg/dL (9-20); Calcium 9.0 mg/dL (8.4-10.2); Carbon Dioxide 25 mmol/L (22-32); Chloride 103 mmol/L (98-107); Estimated Glomerular Filt Rate > 60 mL/min (>60); Glucose 80 mg/dL (70-99); HEMOLYSIS 19 (0-50); Potassium 4.0 mmol/L (3.4-5.1); Sodium 138 mmol/L (137-145)
[2025-05-13 11:41] VITALS: BP 148/81; PULSE 49; RESP 13; TEMP 36.1; O2SAT 99
[2025-05-13 11:45] VITALS: BP 132/80; PULSE 53; RESP 20; O2SAT 99
[2025-05-13 11:53] VITALS: BP 121/72; PULSE 53; RESP 14; TEMP 36; O2SAT 100
== END 2025-05-13 12:15 | disposition home or self-care (01) ==
PROVIDERS: Student in an Organized Health Care Education/Training Program; Surgery; PCP Internal Medicine; Referring Provider Internal Medicine Gastroenterology; Visit Provider Internal Medicine Gastroenterology
PROC: 0DJD8ZZ Inspection of Lower Intestinal Tract, Via Natural or Artificial Opening Endoscopic (ICD-10-PCS; CPT 45378; principal; 2025-05-13 13:00)
DX: Z12.11 Encounter for screening for malignant neoplasm of colon (principal); K51.90 Ulcerative colitis, unspecified, without complications
CPT/HCPCS: 45380; 80048; 93005; 93010; J2704